=== PATIENT | female | born 1990 | race Caucasian/White ===

== ENCOUNTER 2016-06-17 00:31 | Emergency (ER) | payer OTHER ==
[~2016-06-17] VITALS: Ht 172.7 cm; Wt 143.2 kg
[~2016-06-17 00:31] MED LIST: CAPT25T PO; FLEXERIL10 MG PO; LABETALOL HCL100 MG PO; LISINOPRIL10 MG PO; Normodyne,Trandate PO; PERCOCET 5/31 TABLET PO; PRINIVIL10 MG PO; PROTONIX40 MG PO; TOPIRAMATE25 MG PO; VENLAFAXINE HC150 M1 PO; VENLAFAXINE HCL75 M3 PO; ZOFRAN4 MG PO; ZYRTEC-D1 TABLET PO; Zestril,Prinivil PO
[2016-06-17 02:03] LABS: HEMATOCRIT 36.5 % (36.0-46.0); MCH 25.9 PG (29.0-34.0); MCHC 33.2 G/DL (30.0-36.0); PLATELET COUNT 425 K/uL (156-360); RBC DIS.WIDTH-CV 14.4 % (11.8-14.6); RBC DIS.WIDTH-SD 39.5 % (39-53); RED BLOOD COUNT 4.68 M/uL (3.80-5.20)
[2016-06-17 02:10] LABS: CHLORIDE 115 mEq/L (99-109); POTASSIUM 4.4 mEq/L (3.7-5.4); SODIUM 140 mEq/L (136-147)
[2016-06-17 02:13] LABS: GLUCOSE 104 mg/dL (70-99)
[2016-06-17 02:14] LABS: ANION GAP 10 MEQ/L (2-14); TOTAL BILIRUBIN 0.4 mg/dL (0.0-1.0)
[2016-06-17 02:16] LABS: ALKALINE PHOSPHATASE 96 IU/L (3-129); GFR ESTIMATE (CALCULATED) > 59 mL/min/
[2016-06-17 02:17] LABS: UREA NITROGEN (BUN) 11 mg/dL (9-23)
[2016-06-17 02:26] LABS: QUANTITATIVE HCG < 4.0 MIU/ML
[2016-06-17] MEDS ORDERED: NORCO 5/3251 TABLET PO (03:01)
[2016-06-17] MEDS ORDERED: FLOMAX0.4 MG PO (03:01)
[2016-06-17] MEDS ORDERED: ZOFRAN8 MG PO (03:01)
[2016-06-17 03:51] LABS: ADD MIUA? YES; BILIRUBIN NEGATIVE; BLOOD LARGE; COLOR YELLOW ((YELLOW)); GLUCOSE (STRIP) NEGATIVE; KETONES NEGATIVE; LEUKOCYTES NEGATIVE; NITRITE NEGATIVE; PROTEIN (STRIP) 30; SPECIFIC GRAVITY 1.021 (1.000-1.030); UROBILINOGEN 0.2 MG/DL (0.2-1.0)
[2016-06-17 03:58] LABS: BACTERIA NONE SEEN /HPF; EPITHELIAL CELLS 1+ /HPF; HYALINE CASTS 0-5 /LPF; MUCUS TRACE /LPF; RED BLOOD CELLS TNTC /HPF (0-5); UCUL ADDED? NO
[2016-06-17 04:25] VITALS: BP 130/88
== END 2016-06-17 04:56 | disposition home or self-care (01) ==
LOC: EME 00:31
DX: N20.1 Calculus of ureter (principal); R31.9 Hematuria, unspecified; Z87.442 Personal history of urinary calculi; I10 Essential (primary) hypertension; K21.9 Gastro-esophageal reflux disease without esophagitis; Z87.891 Personal history of nicotine dependence
CPT/HCPCS: 74176; 80053; 81003; 84702; 85027; 99281; 99285; J1885; J2270; J2405; J7030

== ENCOUNTER 2017-05-31 22:02 | Observation (INO) | payer OTHER ==
[~2017-05-31] VITALS: Ht 172.7 cm; Wt 150.9 kg
[~2017-05-31 22:02] MED LIST changes: +FLOMAX0.4 MG PO; +NORCO 5/3251 TABLET PO; +ZOFRAN8 MG PO
[2017-05-31 22:38] LABS: BASOPHIL (%) 0.3 % (0-1); EOSINOPHIL (%) 3.8 % (0-5); EOSINOPHIL COUNT 0.4 K/uL (0-0.3); HEMATOCRIT 39.5 % (36.0-46.0); HEMOGLOBIN 12.7 G/DL (11.9-15.5); IMMATURE GRANULOCYTE (%) 0.3 % (0.0-0.7); LYMPHOCYTE (%) 32.2 % (15-42); MCH 25.9 PG (29.0-34.0); MCHC 32.2 G/DL (30.0-36.0); MCV 80.4 FL (83-99); MONOCYTE (%) 4.8 % (3-12); MONOCYTE COUNT 0.4 K/uL (0-0.8); NEUTROPHIL (%) 58.6 % (45-76); NEUTROPHIL COUNT 5.4 K/uL (1.8-6.4); PLATELET COUNT 369 K/uL (156-360); RBC DIS.WIDTH-CV 14.4 % (11.8-14.6); RBC DIS.WIDTH-SD 41.8 % (39-53); RED BLOOD COUNT 4.91 M/uL (3.80-5.20); WHITE BLOOD COUNT 9.2 K/uL (4.1-10.2)
[2017-05-31 22:46] LABS: D-DIMER ELISA < 150.00 ng/mLDDU (<230)
[2017-05-31 22:54] LABS: ALBUMIN 3.9 g/dL (3.2-4.8); CHLORIDE 111 mEq/L (99-109); POTASSIUM 3.8 mEq/L (3.7-5.4); SODIUM 141 mEq/L (136-147)
[2017-05-31 22:56] LABS: GLUCOSE 140 mg/dL (70-99); TOTAL PROTEIN 7.4 g/dL (6.4-8.3)
[2017-05-31 22:58] LABS: TOTAL BILIRUBIN 0.2 mg/dL (0.0-1.0)
[2017-05-31 23:00] LABS: ALKALINE PHOSPHATASE 86 IU/L (3-129); CREATININE 0.8 mg/dL (0.6-1.3); GFR ESTIMATE (CALCULATED) > 59 mL/min/
[2017-05-31 23:01] LABS: UREA NITROGEN (BUN) 10 mg/dL (9-23)
[2017-05-31 23:02] LABS: AST (GOT) 19 IU/L (2-34)
[2017-05-31 23:03] LABS: ALT (GPT) 31 IU/L (3-49)
[2017-05-31 23:09] LABS: TROP-I INTERPRETATION NEGATIVE; TROPONIN-I 0.01 ng/mL (0.0-0.30)
[2017-05-31 23:10] LABS: QUANTITATIVE HCG < 4.0 MIU/ML
[2017-06-01] MEDS ORDERED: MUCINEX DM ER1 EACH PO (00:24)
[2017-06-01] MEDS ORDERED: BACTRIM,SEPT1 TABLET PO (00:24)
[2017-06-01] MEDS ORDERED: CLARITIN,ALAVAR10 MG PO (00:24)
[2017-06-01 03:11] VITALS: BP 138/83
[2017-06-01 09:01] VITALS: BP 126/60
[2017-06-01 10:07] LABS: TROP-I INTERPRETATION NEGATIVE; TROPONIN-I < 0.01 ng/mL (0.0-0.30)
[2017-06-01 11:56] VITALS: BP 140/84
[2017-06-01 12:28] LABS: BENZODIAZEPINES, URINE SCREEN Negative (200 ng/mL)
== END 2017-06-01 13:28 | disposition home or self-care (01) ==
LOC: EME 22:02 → EDOF 06-01 00:50 → ENRESERV 06-01 00:52 → 5WEST 06-01 02:58
PROVIDERS: Emergency Medicine; Hospitalist; Physician Assistant
DX: R55 Syncope and collapse (principal); I10 Essential (primary) hypertension; J06.9 Acute upper respiratory infection, unspecified; G43.909 Migraine, unspecified, not intractable, without status migrainosus; J32.0 Chronic maxillary sinusitis; Z82.49 Family history of ischemic heart disease and other diseases of the circulatory system; E66.01 Morbid (severe) obesity due to excess calories; Z68.43 Body mass index [BMI] 50.0-59.9, adult; Z87.891 Personal history of nicotine dependence; E28.2 Polycystic ovarian syndrome; Z82.0 Family history of epilepsy and other diseases of the nervous system; Z82.3 Family history of stroke; Z83.49 Family history of other endocrine, nutritional and metabolic diseases
CPT/HCPCS: 70450; 71046; 80053; 80306 90; 81003; 84484; 84702; 85025; 85379; 93005; 99281; 99285; G0378; J7030; J7040